=== PATIENT | male | born 1985 | race Caucasian/White ===

== ENCOUNTER 2021-11-10 21:37 | Emergency (ER) | payer MEDICAID ==
[~2021-11-10] VITALS: Ht 167.6 cm; Wt 80.0 kg
--- NOTE | 2021-11-10 22:07 | NUR ---
The patient is a 35 year old male who was brought in by EMS after they were called to the patient's residence. He reportedly had been using methamphetamine and has not slept for the past 4 days. He also reports he had not eaten for the past 3 days. He appeared very distracted by internal stimuli and had difficulty answering assessment questions. He stated that he is having command auditory hallucinations telling him to kill himself and to harm his family. He reports having thoughts of molesting children and stated he has never had those thoughts before and he denies that he has done anything to harm anyone. He reports he is suicidal with a vague plan to have someone else kill him. He reports visual hallucinations of "faces" He denies any kind of psychiatric history. He denies ever being arrested or being on probation or parole. He is currently unemployed and staying with his brother and sister in law. Stated, "I have to " because he was having bad thoughts. He is taking suboxone which he stated was rx'd by [facility]. He is giving no eye contact. Affect is flat.
[2021-11-10 22:15] LABS: BASOPHILS % (AUTO) 0.4 % (0-1); EOSINOPHILS # (AUTO) 0.1 X10'3 (0-0.9); EOSINOPHILS % (AUTO) 0.8 % (0-6); HEMATOCRIT 40.9 % (42.0-52.0); LYMPHOCYTES # (AUTO) 1.4 X10'3 (1.1-4.8); MEAN CORPUSCULAR HEMOGLOBIN 31.1 PG (27.0-31.0); MEAN CORPUSCULAR HGB CONC 34.2 g/dL (33.0-36.5); MEAN CORPUSCULAR VOLUME 90.9 FL (78-98); MEAN PLATELET VOLUME 7.2 FL (7.4-10.4); MONOCYTES # (AUTO) 0.6 X10'3 (0-0.9); MONOCYTES % (AUTO) 7.6 % (2-12); NEUTROPHILS # (AUTO) 5.3 X10'3 (1.8-7.7); NEUTROPHILS % (AUTO) 72.2 % (42-75); PLATELET COUNT 277 X10'3 (140-440); RED CELL DISTRIBUTION WIDTH 12.8 % (11.5-14.5); WHITE BLOOD COUNT 7.3 X10'3 (4.5-11.0)
[2021-11-10] MEDS ORDERED: BUPR1FIL5 SL (22:17)
[2021-11-10 22:30] LABS: ALANINE AMINOTRANSFERASE 19 U/L (12-78); ALBUMIN 4.3 G/DL (3.4-5.0); ALBUMIN/GLOBULIN RATIO 1.2 (1.1-1.5); ALKALINE PHOSPHATASE 53 IU/L (46-116); ANION GAP 13 (8-16); ASPARTATE AMINO TRANSFERASE 14 U/L (10-37); BILIRUBIN,TOTAL 0.6 MG/DL (0.1-1.0); BLOOD UREA NITROGEN 15 MG/DL (7-18); BUN/CREATININE RATIO 16.3 (5.4-32.0); CALCIUM 9.2 MG/DL (8.5-10.1); CHLORIDE 103 MMOL/L (99-107); CREATININE 0.92 MG/DL (0.60-1.10); ETHANOL < 0.010 GM/DL (0.0-0.010); GLUCOSE 131 MG/DL (70-104); POTASSIUM 3.4 MMOL/L (3.5-5.1); SODIUM 141 MMOL/L (135-145); TOTAL CARBON DIOXIDE 25.1 MMOL/L (24-32); eGFR > 90 ML/MIN
[2021-11-10] MEDS ORDERED: OLANZapine 5mg rapidly disint. tablet PO ONE (22:35)
--- NOTE | 2021-11-10 22:55 | NUR ---
The patient is very hypervigilant but he is refusing the Zyprexa because he believes he deserves to .
--- NOTE | 2021-11-10 23:24 | NUR ---
The patient is awake and continues to refuse medication.
--- NOTE | 2021-11-11 00:27 | NUR ---
The patient remains awake and staring straight ahead. He refuses medications. He has been unable to give us a urine sample
--- NOTE | 2021-11-11 00:57 | NUR ---
The patient agreed to take zyprexa.
--- NOTE | 2021-11-11 02:23 | NUR ---
The patient presents as less internally preoccupied. He is eating and drinking at the bedside
--- NOTE | 2021-11-11 05:15 | NUR ---
THe patient appears to be sleeping
--- NOTE | 2021-11-11 06:00 | NUR ---
CARE ASUMED FROM [facility]NA[facility] JAMES OFF GOING NURSE. PT. VISBLE LYING IN BED WITH EYES CLOSED. NO DISTRESS NOTED. STAFF WILL CONTINUE TO MONITOR FOR SAFETY.
--- NOTE | 2021-11-11 08:20 | NUR ---
PT. PRESENSTS CALM AND COOPERATIVE WITH MORNING ASSESSMENT. PT. DENIES ANY CURRENT SI/HI OR HALLUCINATIONS. PT. STATES HE FEELS VERY SORRY FOR EVERYTHING THAT HAS HAPPENED. PT. COMPLIANT WITH PROVIDING URINE SAMPLE. PT. HAS BREAKFAST TRAY AT BEDSIDE BUT STATES HE NOT HUNGRY. PT. SITTING IN BED QUIETLY LOOKING AROUND THE UNIT. PT. INFORMED THAT HE NARESH BE EVALUATE BY [facility] CLINICIAN TODAY TO DETERMINE BEST DISPOSITION FOR PATIENT. PT. PRESENTS WITH DEPRESSED MOOD. STAFF WILL CONTINUE TO MONITOR FOR SAFETY.
[2021-11-11 08:37] LABS: URINE AMPHETAMINE SCREEN POSITIVE (Neg); URINE BARBITUATE SCREEN NEGATIVE (Neg); URINE BENZODIAZEPINES SCREEN NEGATIVE (Neg); URINE CANNABINOID SCREEN NEGATIVE (Neg); URINE COCAINE SCREEN NEGATIVE (Neg); URINE METHADONE SCREEN NEGATIVE (Neg); URINE OPIATE SCREEN NEGATIVE (Neg); URINE PHENCYCLIDINE SCREEN NEGATIVE (Neg)
[2021-11-11 08:41] LABS: CLARITY,URINE CLOUDY (Clear); COLOR,URINE YELLOW (Yellow); GLUCOSE, URINE NEGATIVE (Neg); KETONES,URINE 15 mg/dl (Neg); LEUKOCYTE ESTERASE ,URINE SMALL (Neg); NITRITES, URINE NEGATIVE (Neg); OCCULT BLOOD,URINE TRACE-INTACT (Neg); PROTEIN,URINE NEGATIVE (Neg); UROBILINOGEN,URINE 0.2 E.U/dL (0.2-1.0)
[2021-11-11 08:51] LABS: UA COLLECTION TYPE CLN CATCH MIDSTREAM
[2021-11-11 08:55] LABS: MUCUS STRANDS MANY /LPF (Neg); WBC,URINE TNTC /HPF (0-4)
[2021-11-11 08:57] LABS: BACTERIA,URINE 1+ /HPF (Neg); HYALINE CASTS 0-3 /LPF (NEGATIVE); RBC,URINE 0-2 /HPF (0-2); SQUAMOUS EPITHELIAL CELL,UR FEW /LPF (FEW)
[2021-11-11] MEDS ORDERED: CefTRIAXone 1000mg IM Kit (w/lidocaine diluent) IM STA (09:08)
[2021-11-11] MEDS ORDERED: azithromycin 250mg tablet PO ONE (09:10)
[2021-11-11] MEDS ORDERED: BUPR1FIL3 SL (09:15)
--- NOTE | 2021-11-11 09:37 | NUR ---
DR MAYS AT BEDSIDE TO ASSESS PATIENT AT THIS TIME. PATIENT CALM AND COOPERATIVE, UP AT EDGE OF BED, PAT WITHIN SIGHT OF STAFF AT ALL TIMES.
[2021-11-11] MEDS: buprenorphine/naloxone 8MG-2MG SUBlingual film SL SCH ×2 (09:50→14:46)
--- NOTE | 2021-11-11 10:56 | NUR ---
[facility] CLINICIAN AT BEDSIDE TO EVALUATE .
--- NOTE | 2021-11-11 11:59 | NUR ---
PT. RESTING QUIETLY WITH EYE CLOSED NO DISTRESS NOTED.
--- NOTE | 2021-11-11 13:49 | NUR ---
[facility] ELIZABETH PT. SCHEDULED FOR DISCHARGE TO HOME TODAY WITH FAMILY. EST. PICKUP TIME AROUND 1800.
--- NOTE | 2021-11-11 14:38 | NUR ---
PT. NOW AWAKE AND EATING A LATE LUNCH. SUBOXONE WILL BE GIVEN ORDERED.
--- NOTE | 2021-11-11 16:39 | NUR ---
PT. RESTING QUIETLY. NO DISTRESS NOTED .
--- NOTE | 2021-11-11 17:11 | NUR ---
DISCHARGE INSTRUCTIONS DISCUSSED WITH PATIENT. PATIENT STATES AN UNDERSTANDING OF INSTRUCTIONS. AWAITNG PICK-UP BY FAMILY.
--- NOTE | 2021-11-11 17:28 | NUR ---
PT. DISCHARGED HOME WITH FAMILY. PT. HAS RECEIVED ALL HIS PERSONAL BELONGINGS AND DISCHARGE INSTRUCTIONS. PT. ESCORTED OF THE UNIT BY THIS CUSTOMER OPERATIONS SPECIALIST.
[2021-11-11 17:29] VITALS: BP 121/76
== END 2021-11-11 17:33 | disposition home or self-care (01) ==
LOC: ER 21:38
DX: R45.851 Suicidal ideations (principal); F29 Unspecified psychosis not due to a substance or known physiological condition; F17.210 Nicotine dependence, cigarettes, uncomplicated; F15.10 Other stimulant abuse, uncomplicated; Z20.822 Contact with and (suspected) exposure to COVID-19
CPT/HCPCS: 36415; 80053; 80305; 80320; 81001; 84443; 85025; 87491; 87591; 87635; 96372; 99285; C9803; J0696

== ENCOUNTER 2024-05-22 15:40 | Inpatient (IN) | payer BC, MEDICAID ==
[~2024-05-22] VITALS: Ht 167.6 cm; Wt 69.1 kg
[~2024-05-22 15:40] MED LIST: BUPR1FIL3 SL
[2024-05-22 17:21] LABS: BASOPHILS % (AUTO) 0.2 % (0-1); EOSINOPHILS # (AUTO) 0.1 X10'3 (0-0.9); EOSINOPHILS % (AUTO) 0.5 % (0-6); HEMATOCRIT 42.9 % (42.0-52.0); HEMOGLOBIN 14.1 g/dl (14.0-17.9); LYMPHOCYTES # (AUTO) 1.5 X10'3 (1.1-4.8); LYMPHOCYTES % (AUTO) 10.9 % (21-51); MEAN CORPUSCULAR HEMOGLOBIN 30.2 PG (27.0-31.0); MEAN CORPUSCULAR HGB CONC 32.9 g/dL (33.0-36.5); MEAN CORPUSCULAR VOLUME 91.7 FL (78-98); MONOCYTES # (AUTO) 0.9 X10'3 (0-0.9); MONOCYTES % (AUTO) 6.9 % (2-12); NEUTROPHILS # (AUTO) 10.8 X10'3 (1.8-7.7); NEUTROPHILS % (AUTO) 81.5 % (42-75); PLATELET COUNT 224 X10'3 (140-440); RED BLOOD COUNT 4.68 X10'6 (4.70-6.10); RED CELL DISTRIBUTION WIDTH 13.3 % (11.5-14.5); WHITE BLOOD COUNT 13.3 X10'3 (4.5-11.0)
[2024-05-22 17:30] LABS: APTT 25 SECONDS (22-32); PROTHROMBIN TIME 10.8 SECONDS (9.0-12.0)
[2024-05-22 17:32] LABS: ALANINE AMINOTRANSFERASE 24 U/L (12-78); ALBUMIN 4.1 G/DL (3.4-5.0); ALBUMIN/GLOBULIN RATIO 1.1 (1.1-1.5); ALKALINE PHOSPHATASE 52 IU/L (46-116); ANION GAP 8 (8-16); ASPARTATE AMINO TRANSFERASE 18 U/L (10-37); BILIRUBIN,TOTAL 0.5 MG/DL (0.1-1.0); BLOOD UREA NITROGEN 11 MG/DL (7-18); BUN/CREATININE RATIO 11.8 (10.0-20.0); C-REACTIVE PROTEIN 0.11 MG/DL (0.0-0.5); CALCIUM 9.2 MG/DL (8.5-10.1); CHLORIDE 106 MMOL/L (99-107); CREATININE 0.93 MG/DL (0.60-1.10); GLUCOSE 106 MG/DL (70-104); LIPASE 38 U/L (16-77); POTASSIUM 3.6 MMOL/L (3.5-5.1); SODIUM 145 MMOL/L (135-145); TOTAL CARBON DIOXIDE 31.4 MMOL/L (24-32); TOTAL PROTEIN 7.7 G/DL (6.4-8.2); eCRCL 99 ML/MIN; eGFR > 90 ML/MIN
[2024-05-22] MEDS: diphenhydrAMINE 50 mg/ml inj IV ONE (17:51)
[2024-05-22] MEDS: morphine 4 MG/ML inj SYRINge IV ONE (17:51)
[2024-05-22] MEDS: metoclopramide 5 mg/ml inj IV ONE (17:51)
[2024-05-22] MEDS: piperacillin/tazo 3.375gm/50ml 50 ML IV STA (17:52)
[2024-05-22] MEDS: normal saline 1000ml 1,000 ML IV ONE (17:52)
[2024-05-22] MEDS ORDERED: ondansetron/PF 4mg/2ml inj IV PRN (18:05)
[2024-05-22] MEDS ORDERED: morphine 2 MG/ML inj. syringe IV PRN ×2 (18:05)
[2024-05-22] MEDS ORDERED: HYDROmorphone inj. 0.5 MG/0.5 ML DISP.SYRIN IV PRN (18:05)
[2024-05-22] MEDS ORDERED: potassium Cl 20 mEq SR tablet PO PRN ×2 (18:05)
[2024-05-22] MEDS ORDERED: acetaminophen 650mg rectal suppository RC PRN (18:05)
[2024-05-22] MEDS ORDERED: mag hydrox/Alum hydrox/simeth 30ml oral suspension PO PRN (18:05)
[2024-05-22] MEDS ORDERED: magnesium hydroxide 30ml (MOM) UD suspension PO PRN (18:05)
[2024-05-22] MEDS ORDERED: HYDROmorphone/PF 0.2 MG/ML SYRINGE IV PRN (18:05)
[2024-05-22] MEDS: normal saline 1000ml 1,000 ML IV SCH (19:22)
[2024-05-22] MEDS: magnesium citrate 296ml oral solution PO ONE (21:44)
[2024-05-22 21:55] LABS: BILIRUBIN,URINE NEGATIVE (Neg); CLARITY,URINE CLEAR (Clear); COLOR,URINE YELLOW (Yellow); GLUCOSE, URINE NEGATIVE (Neg); KETONES,URINE 40 mg/dl (Neg); LEUKOCYTE ESTERASE ,URINE NEGATIVE (Neg); NITRITES, URINE NEGATIVE (Neg); OCCULT BLOOD,URINE NEGATIVE (Neg); PH,URINE 7.5 (4.8-8.0); PROTEIN,URINE NEGATIVE (Neg); UA COLLECTION TYPE CLN CATCH MIDSTREAM; UROBILINOGEN,URINE 0.2 E.U/dL (0.2-1.0)
[2024-05-22 22:10] VITALS: RESP 16; O2SAT 99
[2024-05-22] MEDS: nicotine 7mg patch - 24hr TD SCH (22:46)
[2024-05-22 22:47] VITALS: BP 112/73; PULSE 77; RESP 16; TEMP 98.5; O2SAT 99
[2024-05-23] VITALS (24 sets, daily range): BP systolic 96–125; BP diastolic 52–84; PULSE 63–90; RESP 10–16; TEMP 97.2–98.8; O2SAT 96–100
[2024-05-23] MEDS: piperacillin/tazo 4.5gm/100ml 100 ML IV SCH (00:20)
[2024-05-23] MEDS: acetaminophen 325mg tablet PO PRN (02:42)
[2024-05-23 04:06] LABS: BASOPHILS % (AUTO) 0.4 % (0-1); EOSINOPHILS % (AUTO) 0.3 % (0-6); HEMATOCRIT 39.5 % (42.0-52.0); LYMPHOCYTES # (AUTO) 1.9 X10'3 (1.1-4.8); LYMPHOCYTES % (AUTO) 15.5 % (21-51); MEAN CORPUSCULAR HEMOGLOBIN 30.3 PG (27.0-31.0); MEAN CORPUSCULAR HGB CONC 32.9 g/dL (33.0-36.5); MEAN PLATELET VOLUME 7.2 FL (7.4-10.4); MONOCYTES # (AUTO) 0.8 X10'3 (0-0.9); MONOCYTES % (AUTO) 6.5 % (2-12); NEUTROPHILS # (AUTO) 9.5 X10'3 (1.8-7.7); NEUTROPHILS % (AUTO) 77.3 % (42-75); PLATELET COUNT 208 X10'3 (140-440); RED BLOOD COUNT 4.29 X10'6 (4.70-6.10); RED CELL DISTRIBUTION WIDTH 13.7 % (11.5-14.5); WHITE BLOOD COUNT 12.3 X10'3 (4.5-11.0)
[2024-05-23 04:26] LABS: ALANINE AMINOTRANSFERASE 19 U/L (12-78); ALBUMIN 3.2 G/DL (3.4-5.0); ALBUMIN/GLOBULIN RATIO 0.9 (1.1-1.5); ALKALINE PHOSPHATASE 44 IU/L (46-116); ANION GAP 8 (8-16); ASPARTATE AMINO TRANSFERASE 13 U/L (10-37); BILIRUBIN,TOTAL 1.2 MG/DL (0.1-1.0); BLOOD UREA NITROGEN 9 MG/DL (7-18); BUN/CREATININE RATIO 10.6 (10.0-20.0); CALCIUM 8.5 MG/DL (8.5-10.1); CHLORIDE 107 MMOL/L (99-107); CREATININE 0.85 MG/DL (0.60-1.10); GLUCOSE 111 MG/DL (70-104); MAGNESIUM 2.2 MG/DL (1.5-2.4); PHOSPHORUS 2.8 MG/DL (2.3-4.5); POTASSIUM 3.6 MMOL/L (3.5-5.1); SODIUM 142 MMOL/L (135-145); TOTAL CARBON DIOXIDE 27.1 MMOL/L (24-32); TOTAL PROTEIN 6.7 G/DL (6.4-8.2); eCRCL 108 ML/MIN; eGFR > 90 ML/MIN
[2024-05-23 04:29] LABS: APTT 26 SECONDS (22-32); INR 1.1 INR; PROTHROMBIN TIME 11.4 SECONDS (9.0-12.0)
[2024-05-23] MEDS ORDERED: fentaNYL/PF 50MCG/1 ML 2ML syringe ONE (08:35)
[2024-05-23] MEDS ORDERED: midazolam 1 mg/ML 2ml injection ONE (08:35)
[2024-05-23] MEDS ORDERED: rocuronium 10mg/ml inj IV ONE (08:36)
[2024-05-23] MEDS ORDERED: propofol inj 20 ML IV ONE (08:36)
[2024-05-23] MEDS ORDERED: sevoflurane 250ml liquid IH ONE (09:58)
[2024-05-23] MEDS ORDERED: morphine 4 MG/ML inj SYRINge IV PRN (10:45)
[2024-05-23] MEDS ORDERED: proCHLORperazine 10 MG/2 ml inj IV PRN (10:45)
[2024-05-23] MEDS ORDERED: ondansetron/PF 4mg/2ml inj IV PRN ×2 (10:45→11:25)
[2024-05-23] MEDS ORDERED: morphine 2 MG/ML inj. syringe IV PRN (10:45)
[2024-05-23] MEDS ORDERED: meperidine/PF 25mg/ml syringe IV PRN (10:45)
[2024-05-23] MEDS ORDERED: neostigmine methylsulfate 1 MG/ML 10ml vial ONE (11:12)
[2024-05-23] MEDS ORDERED: ondansetron/PF 4mg/2ml inj ONE (11:12)
[2024-05-23] MEDS ORDERED: dexamethasone sod phosphate 4mg/ml inj. ONE (11:12)
[2024-05-23] MEDS ORDERED: glycopyrrolate 0.2mg/ml inj ONE (11:12)
[2024-05-23] MEDS ORDERED: acetaminophen 1,000mg/100ml IV 100 ML IV ONE (11:21)
[2024-05-23] MEDS ORDERED: naloxone 0.4 mg/ml inj IV PRN (11:25)
[2024-05-23] MEDS: meperidine/PF 25mg/ml syringe IV PRN ×2 (11:35→12:48)
[2024-05-23] MEDS: ringers solution, lacted 1,000 ML IV SCH (11:46)
[2024-05-23] MEDS: ketorolac trometh 30MG/ML vial 30 MG/ML VIAL IV ONE (12:02)
[2024-05-23] MEDS: nicotine 7mg patch - 24hr TD SCH (22:00)
[2024-05-24] MEDS: HYDROcodone/acetaminophen 10/325mg tab PO PRN (00:04)
[2024-05-24 02:00] VITALS: BP 93/52; PULSE 67; RESP 16; TEMP 98.3; O2SAT 95
[2024-05-24 04:31] LABS: BASOPHILS % (AUTO) 0.1 % (0-1); EOSINOPHILS % (AUTO) 0 % (0-6); HEMATOCRIT 37.2 % (42.0-52.0); HEMOGLOBIN 12.4 g/dl (14.0-17.9); LYMPHOCYTES # (AUTO) 1.1 X10'3 (1.1-4.8); LYMPHOCYTES % (AUTO) 10.7 % (21-51); MEAN CORPUSCULAR HEMOGLOBIN 30.6 PG (27.0-31.0); MEAN CORPUSCULAR HGB CONC 33.4 g/dL (33.0-36.5); MEAN CORPUSCULAR VOLUME 91.8 FL (78-98); MEAN PLATELET VOLUME 7.6 FL (7.4-10.4); MONOCYTES # (AUTO) 0.7 X10'3 (0-0.9); MONOCYTES % (AUTO) 6.4 % (2-12); NEUTROPHILS # (AUTO) 8.5 X10'3 (1.8-7.7); NEUTROPHILS % (AUTO) 82.8 % (42-75); PLATELET COUNT 193 X10'3 (140-440); RED BLOOD COUNT 4.06 X10'6 (4.70-6.10); RED CELL DISTRIBUTION WIDTH 13.8 % (11.5-14.5); WHITE BLOOD COUNT 10.3 X10'3 (4.5-11.0)
[2024-05-24 04:47] LABS: ALANINE AMINOTRANSFERASE 19 U/L (12-78); ALBUMIN 2.7 G/DL (3.4-5.0); ALBUMIN/GLOBULIN RATIO 0.8 (1.1-1.5); ALKALINE PHOSPHATASE 34 IU/L (46-116); ANION GAP 5 (8-16); ASPARTATE AMINO TRANSFERASE 13 U/L (10-37); BILIRUBIN,TOTAL 0.7 MG/DL (0.1-1.0); BLOOD UREA NITROGEN 8 MG/DL (7-18); BUN/CREATININE RATIO 10.1 (10.0-20.0); CALCIUM 8.1 MG/DL (8.5-10.1); CHLORIDE 110 MMOL/L (99-107); CREATININE 0.79 MG/DL (0.60-1.10); GLUCOSE 120 MG/DL (70-104); MAGNESIUM 1.9 MG/DL (1.5-2.4); PHOSPHORUS 3.6 MG/DL (2.3-4.5); POTASSIUM 3.9 MMOL/L (3.5-5.1); SODIUM 142 MMOL/L (135-145); TOTAL CARBON DIOXIDE 27.5 MMOL/L (24-32); eCRCL 117 ML/MIN; eGFR > 90 ML/MIN
[2024-05-24 06:00] VITALS: BP 122/73; PULSE 64; RESP 16; TEMP 97.9; O2SAT 98
[2024-05-24 08:00] VITALS: RESP 17; O2SAT 98
[2024-05-24 10:00] VITALS: BP 108/68; PULSE 61; RESP 17; TEMP 98.3; O2SAT 98
[2024-05-24] MEDS ORDERED: HYDR-3965 PO (14:56)
[2024-05-24] MEDS ORDERED: NICO-631 TOP (14:56)
== END 2024-05-24 16:45 | disposition home or self-care (01) | DRG 854 ==
LOC: ER 15:40 → ED HOLD 21:02 → SUR 3N 22:00
PROVIDERS: ADMIT Registered Nurse Psychiatric/Mental Health; ATTEND Registered Nurse Psychiatric/Mental Health
PROC: BW211ZZ Computerized Tomography (CT Scan) of Abdomen and Pelvis using Low Osmolar Contrast (ICD-10-PCS; 2024-05-22)
PROC: 8E0W4CZ Robotic Assisted Procedure of Trunk Region, Percutaneous Endoscopic Approach (ICD-10-PCS; 2024-05-23)
PROC: 0DTJ4ZZ Resection of Appendix, Percutaneous Endoscopic Approach (ICD-10-PCS; principal; 2024-05-23 09:58)
DX: A41.9 Sepsis, unspecified organism (principal); K35.80 Unspecified acute appendicitis; R45.851 Suicidal ideations; F15.90 Other stimulant use, unspecified, uncomplicated; F32.A Depression, unspecified; K59.00 Constipation, unspecified; Z87.891 Personal history of nicotine dependence
CPT/HCPCS: 99291; Z7506; Z7508; 36415; 71045; 74176; 80053; 81003; 82948; 83605; 83690; 83735; 84100; 84145; 85025; 85610; 85651; 85730; 86140; 87040; 87081; A4215; A4314; A4618; G0378; J0131; J1100; J1200; J1885; J2175; J2250; J2270; J2405; J2543; J2704; J2710; J2765; J3010; J3490; J7030; J7120